=== PATIENT | male | born 1940 | race Caucasian/White ===

== ENCOUNTER → 2017-08-30 | Outpatient (CLI) | payer OTHER ==
[~2017-08-30] MED LIST: ALLO300T2 PO; AMLO10TA2 PO; ASPI-1012 PO; ASPI-1181 PO; ASPI-1197 PO; CLON0.1T PO; CLON0.2T PO; DICL75TA5 PO; ENAL20TA PO; GABA300S PO; LMFO1TAB PO; LOVA40TA2 PO; MISO200T4 PO; OXCA300T PO; OXCA600T10 PO; PANT20TA12 PO; PHEN300C6 PO; SULF500T8 PO; [UNRECOGNIZED DRUG - OTHER] PO
== END | disposition home or self-care (01) ==
LOC: RAH 08:28
PROVIDERS: ATTEND Family Medicine
DX: K80.20 Calculus of gallbladder without cholecystitis without obstruction (principal); K76.0 Fatty (change of) liver, not elsewhere classified
CPT/HCPCS: 76700

== ENCOUNTER → 2017-10-05 | Outpatient (CLI) | payer OTHER | END | disposition home or self-care (01) | LOC: SLP 20:34 | PROVIDERS: ATTEND Family Medicine | DX: G47.33 Obstructive sleep apnea (adult) (pediatric) (principal); J44.9 Chronic obstructive pulmonary disease, unspecified | CPT/HCPCS: 95810 ==

== ENCOUNTER → 2017-11-01 | Outpatient (CLI) | payer OTHER | END | disposition home or self-care (01) | LOC: SLP 20:18 | PROVIDERS: ATTEND Family Medicine | DX: G47.33 Obstructive sleep apnea (adult) (pediatric) (principal); I10 Essential (primary) hypertension; J44.9 Chronic obstructive pulmonary disease, unspecified; R56.9 Unspecified convulsions | CPT/HCPCS: 95811 ==

== ENCOUNTER 2017-11-29 08:11 | Inpatient (IN) | payer OTHER ==
[~2017-11-29] VITALS: Ht 180.3 cm; Wt 86.8 kg
[2017-11-29] VITALS (23 sets, daily range): BP systolic 145–187; BP diastolic 54–119
[~2017-11-29 08:11] MED LIST changes: -AMLO10TA2 PO; -ASPI-1012 PO; -ASPI-1181 PO; -CLON0.2T PO; -GABA300S PO; -LMFO1TAB PO; -OXCA600T10 PO; -PANT20TA12 PO; -PHEN300C6 PO
[2017-11-29] MEDS ORDERED: ALTEPLASE 100 MG VIAL ONE (08:40)
[2017-11-29 08:51] LABS: BASOPHILS % (AUTO) 0.8 % (0.0-5.0); HEMATOCRIT 39.9 % (42-54); LYMPHOCYTES % (AUTO) 30.4 % (21.0-51.0); MEAN CORPUSCULAR HEMOGLOBIN 32.8 pg (27.0-33.0); MEAN CORPUSCULAR HGB CONC 34.5 g/dL (32.0-36.0); MONOCYTES % (AUTO) 10.1 % (3.0-13.0); NEUTROPHILS % (AUTO) 55.7 % (40.0-77.0); PLATELET COUNT (AUTO) 197 K/uL (130-400); RED CELL DISTRIBUTION WIDTH 13.6 % (11.0-15.5); WHITE BLOOD COUNT (AUTO) 3.7 K/uL (4.8-10.8)
[2017-11-29] MEDS ORDERED: SODIUM CHLORIDE 0.9% 100 ML IV ONE (08:52)
[2017-11-29 09:09] LABS: INR 1.08 (0.85-1.15); PARTIAL THROMBOPLASTIN TIME 26.1 SEC (26.3-35.5); PROTHROMBIN TIME 11.3 SEC (9.6-11.6)
[2017-11-29 09:13] LABS: CREATININE 0.8 mg/dL (0.5-1.5); POTASSIUM 4.8 mmol/L (3.5-5.1)
[2017-11-29 09:32] LABS: ALBUMIN 3.4 g/dL (3.5-5.0); BILIRUBIN,TOTAL 0.3 mg/dL (0.2-1.0); CREATINE KINASE MB 1.2 ng/mL (0.5-3.6); TOTAL PROTEIN, SERUM 6.1 g/dL (6.0-8.3)
[2017-11-29] MEDS ORDERED: IOPAMIDOL-370 75 ML VIAL IV ONE (09:34)
[2017-11-29 10:37] LABS: APPEARANCE,URINE Clear (CLEAR); BILIRUBIN,URINE Negative (NEGATIVE); COLOR,URINE Yellow (YELLOW); GLUCOSE, URINE (UA) Negative (NEGATIVE); KETONES,URINE Negative (NEGATIVE); LEUKOCYTE ESTERASE ,URINE Negative (NEGATIVE); NITRATE,URINE Negative (NEGATIVE); OCCULT BLOOD,URINE Negative (NEGATIVE); PROTEIN,URINE Negative (NEGATIVE)
[2017-11-29 10:44] LABS: AMPHET/METH SCREEN,URINE NEGATIVE (NEGATIVE); BARBITURATE SCREEN, URINE NEGATIVE (NEGATIVE); BENZODIAZEPINES SCREEN,URINE NEGATIVE (NEGATIVE); CANNABINOID SCREEN,URINE POSITIVE (NEGATIVE); COCAINE SCREEN,URINE NEGATIVE (NEGATIVE); OPIATE SCREEN,URINE NEGATIVE (NEGATIVE); PHENCYCLIDINE SCREEN,URINE NEGATIVE (NEGATIVE)
[2017-11-29] MEDS ORDERED: PHENYTOIN SODIUM 100 MG ERCAP PO ONE ×3 (10:50→11:20)
[2017-11-29] MEDS ORDERED: PANT20TA12 PO (12:29)
[2017-11-29] MEDS ORDERED: CLON0.2T PO (12:29)
[2017-11-29] MEDS ORDERED: LMFO1TAB PO (12:29)
[2017-11-29] MEDS ORDERED: AMLO10TA2 PO (12:29)
[2017-11-29] MEDS ORDERED: OXCA600T10 PO (12:29)
[2017-11-29] MEDS ORDERED: GABA300S PO (12:29)
[2017-11-29] MEDS ORDERED: ASPI-1181 PO (12:29)
[2017-11-29] MEDS ORDERED: PHEN300C6 PO (12:29)
[2017-11-29] MEDS ORDERED: HYDRALAZINE HCL 20 MG/ML VIAL ONE (12:39)
[2017-11-29] MEDS ORDERED: ACETAMINOPHEN 325 MG TAB PO PRN (12:45)
[2017-11-29] MEDS ORDERED: HYDRALAZINE HCL 20 MG/ML VIAL IV PRN (12:45)
[2017-11-29] MEDS: SODIUM CHLORIDE 0.9% 1000ML 1,000 ML IV SCH (13:05)
[2017-11-29] MEDS: PHENYTOIN SODIUM 100 MG ERCAP PO SCH ×2 (13:17→21:52)
[2017-11-29] MEDS: OXCARBAZEPINE 300 MG TAB PO SCH (21:52)
[2017-11-29] MEDS: ENALAPRIL MALEATE 10 MG TABLET PO SCH (21:52)
[2017-11-29] MEDS: GABAPENTIN 300 MG CAPSULE PO SCH (21:53)
[2017-11-29] MEDS: ATORVASTATIN CALCIUM 20 MG TABLET PO SCH (21:53)
[2017-11-29] MEDS: CLONIDINE HCL 0.2 MG TABLET PO SCH (22:02)
[2017-11-30] VITALS (23 sets, daily range): BP systolic 123–192; BP diastolic 50–87
[2017-11-30] MEDS: SODIUM CHLORIDE 0.9% 1000ML 1,000 ML IV SCH (02:23)
[2017-11-30] MEDS: ACETAMINOPHEN 325 MG TAB PO PRN (02:24)
[2017-11-30] MEDS: PHENYTOIN SODIUM 100 MG ERCAP PO SCH ×3 (06:36→21:07)
[2017-11-30] MEDS: SULFASALAZINE 500 MG TAB.DR PO SCH (07:44)
[2017-11-30] MEDS: PANTOPRAZOLE SODIUM 40 MG TABLET.DR PO SCH (07:44)
[2017-11-30] MEDS: AMLODIPINE BESYLATE 5 MG TAB PO SCH (07:44)
[2017-11-30] MEDS: ALLOPURINOL 300 MG TABLET PO SCH (07:44)
[2017-11-30] MEDS: CLONIDINE HCL 0.2 MG TABLET PO SCH ×2 (07:45→20:50)
[2017-11-30] MEDS ORDERED: PANTOPRAZOLE SODIUM 40 MG TABLET.DR PO SCH (09:00)
[2017-11-30 09:10] LABS: HEMATOCRIT 38.8 % (42-54); MEAN CORPUSCULAR HEMOGLOBIN 32.8 pg (27.0-33.0); MEAN CORPUSCULAR HGB CONC 34.3 g/dL (32.0-36.0); MEAN CORPUSCULAR VOLUME 95.8 fL (79-99); PLATELET COUNT (AUTO) 180 K/uL (130-400); RED BLOOD CELL COUNT(AUTO) 4.05 MIL/uL (4.50-6.20); WHITE BLOOD COUNT (AUTO) 3.7 K/uL (4.8-10.8)
[2017-11-30] MEDS: OXCARBAZEPINE 300 MG TAB PO SCH ×2 (09:14→20:51)
[2017-11-30] MEDS: ENALAPRIL MALEATE 10 MG TABLET PO SCH ×2 (09:15→20:51)
[2017-11-30 09:21] LABS: CREATININE 0.8 mg/dL (0.5-1.5); MAGNESIUM 1.9 mg/dL (1.80-2.40); PHENYTOIN (DILANTIN) 6.6 mcg/mL (10.0-20.0); POTASSIUM 4.1 mmol/L (3.5-5.1)
[2017-11-30] MEDS: ASPIRIN 325MG EC TAB 325 MG TABLET.DR PO SCH (11:07)
[2017-11-30] MEDS ORDERED: PHEN300C6 PO (18:21)
[2017-11-30] MEDS: ATORVASTATIN CALCIUM 20 MG TABLET PO SCH (20:50)
[2017-11-30] MEDS: GABAPENTIN 300 MG CAPSULE PO SCH (20:51)
[2017-12-01] VITALS (9 sets, daily range): BP systolic 119–167; BP diastolic 49–79
[2017-12-01 03:49] LABS: CREATININE 0.7 mg/dL (0.5-1.5); HEMATOCRIT 36.8 % (42-54); MEAN CORPUSCULAR HEMOGLOBIN 34.1 pg (27.0-33.0); MEAN CORPUSCULAR HGB CONC 35.8 g/dL (32.0-36.0); MEAN CORPUSCULAR VOLUME 95.2 fL (79-99); PLATELET COUNT (AUTO) 190 K/uL (130-400); POTASSIUM 3.8 mmol/L (3.5-5.1); RED BLOOD CELL COUNT(AUTO) 3.86 MIL/uL (4.50-6.20); RED CELL DISTRIBUTION WIDTH 13.9 % (11.0-15.5); WHITE BLOOD COUNT (AUTO) 5.3 K/uL (4.8-10.8)
[2017-12-01] MEDS ORDERED: PHENYTOIN SODIUM 100 MG ERCAP PO SCH ×2 (07:30→21:00)
[2017-12-01] MEDS: ACETAMINOPHEN 325 MG TAB PO PRN (07:54)
[2017-12-01] MEDS: SULFASALAZINE 500 MG TAB.DR PO SCH (07:55)
[2017-12-01] MEDS: ALLOPURINOL 300 MG TABLET PO SCH (07:55)
[2017-12-01] MEDS: CLONIDINE HCL 0.2 MG TABLET PO SCH (07:55)
[2017-12-01] MEDS: ASPIRIN 325MG EC TAB 325 MG TABLET.DR PO SCH (07:55)
[2017-12-01] MEDS: PANTOPRAZOLE SODIUM 40 MG TABLET.DR PO SCH (07:56)
[2017-12-01] MEDS: AMLODIPINE BESYLATE 5 MG TAB PO SCH (07:56)
[2017-12-01] MEDS: OXCARBAZEPINE 300 MG TAB PO SCH (08:26)
[2017-12-01] MEDS: ENALAPRIL MALEATE 10 MG TABLET PO SCH (08:26)
[2017-12-01] MEDS ORDERED: THIAMINE HCL 100 MG TABLET PO SCH (09:00)
[2017-12-01] MEDS ORDERED: MULTIVITAMIN TABLET PO SCH (09:00)
[2017-12-01] MEDS ORDERED: FOLIC ACID 1 MG TABLET PO SCH (09:00)
[2017-12-01] MEDS ORDERED: ASPI-1012 PO (13:41)
== END 2017-12-01 14:49 | disposition home or self-care (01) | DRG 62 ==
LOC: EDH 08:11 → EDHIP 11:10 → 2CH 11:46 → 2BH 18:51
PROVIDERS: ADMIT Internal Medicine Critical Care Medicine; ATTEND Internal Medicine Critical Care Medicine
DX: I63.411 Cerebral infarction due to embolism of right middle cerebral artery (principal); E87.1 Hypo-osmolality and hyponatremia; E78.5 Hyperlipidemia, unspecified; F12.90 Cannabis use, unspecified, uncomplicated; I10 Essential (primary) hypertension; G40.909 Epilepsy, unspecified, not intractable, without status epilepticus; G89.29 Other chronic pain; I48.91 Unspecified atrial fibrillation; R29.810 Facial weakness; F17.210 Nicotine dependence, cigarettes, uncomplicated; I25.10 Atherosclerotic heart disease of native coronary artery without angina pectoris; K21.9 Gastro-esophageal reflux disease without esophagitis; M50.30 Other cervical disc degeneration, unspecified cervical region; Z85.46 Personal history of malignant neoplasm of prostate; Z90.49 Acquired absence of other specified parts of digestive tract
CPT/HCPCS: 36415; 70450; 70496; 70498; 70551; 71045; 80048; 80053; 80156; 80185; 80305; 81003; 82542; 82550; 82553; 82948; 83735; 83874; 84484; 85025; 85027; 85610; 85730; 92522; 93005; 93306; 97039; 99291; J0360; J2997; J7030; Q9967

== ENCOUNTER 2020-10-03 10:20 | Inpatient (IN) | payer OTHER ==
[~2020-10-03] VITALS: Ht 177.8 cm; Wt 99.5 kg
[~2020-10-03 10:20] MED LIST changes: +AMLO-258 PO; +ASPI-1012 PO; -ASPI-1197 PO; -CLON0.1T PO; +CLON0.2T PO; -DICL75TA5 PO; -ENAL20TA PO; +ENAL20TA18 PO; +GABA300S PO; -MISO200T4 PO; -OXCA300T PO; +PHEN300C6 PO; -[UNRECOGNIZED DRUG - OTHER] PO
[2020-10-03] MEDS ORDERED: ONDANSETRON 4MG INJ ONE (11:13)
[2020-10-03] MEDS ORDERED: MORPHINE 2 MG SYG ONE ×2 (11:14→15:39)
[2020-10-03 11:27] LABS: BASOPHILS % (AUTO) 0.6 % (0.0-5.0); HEMATOCRIT 41.3 % (42-54); LYMPHOCYTES % (AUTO) 20.7 % (21.0-51.0); MEAN CORPUSCULAR HEMOGLOBIN 29.8 pg (27.0-33.0); MEAN CORPUSCULAR HGB CONC 32.9 g/dL (32.0-36.0); MEAN CORPUSCULAR VOLUME 90.4 fL (79-99); MONOCYTES % (AUTO) 7.2 % (3.0-13.0); NEUTROPHILS % (AUTO) 69.1 % (40.0-77.0); PLATELET COUNT (AUTO) 173 K/uL (130-400); RED BLOOD CELL COUNT(AUTO) 4.57 MIL/uL (4.50-6.20); RED CELL DISTRIBUTION WIDTH 13.6 % (11.0-15.5); WHITE BLOOD COUNT (AUTO) 5.4 K/uL (4.8-10.8)
[2020-10-03 11:38] LABS: POTASSIUM 4.6 mmol/L (3.5-5.1)
[2020-10-03 11:43] LABS: ALBUMIN 3.6 g/dL (3.5-5.0); BILIRUBIN,TOTAL 0.4 mg/dL (0.2-1.0); TOTAL PROTEIN, SERUM 6.4 g/dL (6.0-8.3)
[2020-10-03 11:57] LABS: INR 1.1 (0.85-1.15); PROTHROMBIN TIME 11.9 SEC (9.6-11.6)
[2020-10-03 11:58] LABS: PARTIAL THROMBOPLASTIN TIME 27.6 SEC (26.3-35.5)
[2020-10-03] MEDS ORDERED: POTASSIUM CHLORIDE 20MEQ/100ML 100 ML IV PRN (13:30)
[2020-10-03] MEDS ORDERED: ONDANSETRON 4MG INJ IVP PRN (13:30)
[2020-10-03] MEDS ORDERED: POTASSIUM CHLORIDE 10MEQ/100ML 100 ML IV PRN (13:30)
[2020-10-03] MEDS ORDERED: POTASSIUM CHLORIDE 10% ELIXIR 20 MEQ/15 ML UDCUP PO PRN (13:30)
[2020-10-03] MEDS ORDERED: LIDOCAINE HCL-MPF 1% 2ML VIAL IV PRN ×2 (13:30)
[2020-10-03] MEDS ORDERED: ACETAMINOPHEN 325 MG TAB PO PRN (13:30)
[2020-10-03] MEDS: 0.9%NACL 1000ML 1,000 ML IV SCH (13:30)
[2020-10-03] MEDS ORDERED: KCL 20 MEQ ERTAB PO PRN (13:30)
[2020-10-03] MEDS ORDERED: 0.9%NACL 1000ML 1,000 ML IV ONE (15:39)
[2020-10-03 16:03] LABS: APPEARANCE,URINE Clear (CLEAR); BILIRUBIN,URINE Negative (NEGATIVE); COLOR,URINE Yellow (YELLOW); GLUCOSE, URINE (UA) Negative (NEGATIVE); KETONES,URINE Negative (NEGATIVE); LEUKOCYTE ESTERASE ,URINE Negative (NEGATIVE); NITRATE,URINE Negative (NEGATIVE); OCCULT BLOOD,URINE Negative (NEGATIVE); PROTEIN,URINE Negative (NEGATIVE); UROBILINOGEN,URINE 0.2 mg/dL (0.2-1.0)
[2020-10-03] MEDS ORDERED: HYDROMORPHONE 0.5 MG SYG (0.5MG/0.5ML) ONE (18:14)
[2020-10-03] MEDS ORDERED: PHENYTOIN SODIUM 100 MG ERCAP PO ONE (20:39)
[2020-10-03] MEDS ORDERED: MELO-108 PO (21:43)
[2020-10-03] MEDS ORDERED: ENAL20TA18 PO (21:43)
[2020-10-03] MEDS ORDERED: GABA300C PO (21:43)
[2020-10-03] MEDS ORDERED: PANT40TA55 PO (21:43)
[2020-10-03] MEDS ORDERED: PHEN100C9 PO (21:43)
[2020-10-03] MEDS ORDERED: AEC81 PO (21:43)
[2020-10-03] MEDS ORDERED: GABA100C PO (21:43)
[2020-10-03] MEDS ORDERED: FINA5TAB41 PO (21:43)
[2020-10-03] MEDS ORDERED: OXYB-66 PO (21:43)
[2020-10-03] MEDS ORDERED: CLIN-141 PO (21:43)
[2020-10-03] MEDS ORDERED: OXYBUTYNIN CHLORIDE 5 MG TABLET ONE (22:26)
[2020-10-03] MEDS ORDERED: PHENYTOIN 100 MG/4 ML UDCUP ONE (22:26)
[2020-10-03] MEDS ORDERED: GABAPENTIN 100 MG CAPSULE ONE (22:26)
[2020-10-03] MEDS ORDERED: AMLODIPINE 5 MG TAB ONE (22:27)
[2020-10-03] MEDS ORDERED: ENALAPRIL MALEATE 5 MG TAB ONE (22:29)
[2020-10-03] MEDS: HYDROMORPHONE 0.5 MG SYG (0.5MG/0.5ML) IVP PRN (22:47)
[2020-10-04] VITALS (26 sets, daily range): BP systolic 110–199; BP diastolic 45–92
[2020-10-04] MEDS: KETOROLAC 30MG VIAL (30MG/ML) IV PRN ×2 (00:59→18:46)
[2020-10-04 04:02] LABS: MEAN CORPUSCULAR HEMOGLOBIN 30.1 pg (27.0-33.0); MEAN CORPUSCULAR VOLUME 91.4 fL (79-99); RED BLOOD CELL COUNT(AUTO) 4.05 MIL/uL (4.50-6.20); RED CELL DISTRIBUTION WIDTH 13.5 % (11.0-15.5); WHITE BLOOD COUNT (AUTO) 6.2 K/uL (4.8-10.8)
[2020-10-04 04:10] LABS: MAGNESIUM 1.8 mg/dL (1.80-2.40); POTASSIUM 3.8 mmol/L (3.5-5.1)
[2020-10-04] MEDS ORDERED: MAGNESIUM 2GM PREMIX 50ML 50 ML IV PRN (04:15)
[2020-10-04] MEDS ORDERED: MAGNESIUM 2GM PREMIX 50ML 50 ML IV ONE (04:24)
[2020-10-04] MEDS: MORPHINE 2 MG SYG IVP PRN ×2 (04:27→15:15)
[2020-10-04] MEDS: CLONIDINE HCL 0.1 MG TABLET PO PRN ×2 (04:28→15:15)
[2020-10-04] MEDS: OXYBUTYNIN 5 MG TAB.SR.24H PO SCH ×2 (07:58→21:20)
[2020-10-04] MEDS: GABAPENTIN 300 MG CAPSULE PO SCH (07:59)
[2020-10-04] MEDS: PHENYTOIN SODIUM 100 MG ERCAP PO SCH ×4 (08:00→21:21)
[2020-10-04] MEDS ORDERED: PANTOPRAZOLE 40 MG TAB DR PO SCH (09:00)
[2020-10-04] MEDS: 0.9%NACL 1000ML 1,000 ML IV SCH ×2 (10:04→11:50)
[2020-10-04] MEDS: GABAPENTIN 100 MG CAPSULE PO SCH ×3 (10:04→21:31)
[2020-10-04] MEDS ORDERED: ROPIVACAINE 0.5% 5MG/ML 30ML IJ ONE ×2 (10:13→10:16)
[2020-10-04] MEDS ORDERED: GLYCOPYRROLATE 1 MG/5 ML SYRINGE ONE (10:13)
[2020-10-04] MEDS ORDERED: NEOSTIGMINE 5MG/5ML SYR IV ONE (10:14)
[2020-10-04] MEDS ORDERED: ROCURONIUM 10MG/1ML SYR 10 MG/ML ML ONE (10:14)
[2020-10-04] MEDS ORDERED: MIDAZOLAM HCL 1 MG/ML 2ML VIAL ONE (10:14)
[2020-10-04] MEDS ORDERED: PROPOFOL 10 MG/ML 20ML VIAL IV ONE (10:14)
[2020-10-04] MEDS ORDERED: 0.9%NACL 10ML VIAL ONE (10:16)
[2020-10-04] MEDS: CEFAZOLIN SODIUM 1 GM VIAL ONE ×2 (10:35→10:38)
[2020-10-04] MEDS ORDERED: MEPERIDINE-PF 25 MG/ML SYG ONE ×2 (12:39→12:56)
[2020-10-04] MEDS: AMLODIPINE 5 MG TAB PO SCH (14:02)
[2020-10-04] MEDS: MELOXICAM 7.5 MG TABLET PO SCH (14:02)
[2020-10-04] MEDS: ASPIRIN 81 MG EC TAB PO SCH (14:02)
[2020-10-04] MEDS: FINASTERIDE 5 MG TABLET PO SCH (14:03)
[2020-10-04] MEDS: PANTOPRAZOLE 40 MG TAB DR PO SCH (14:03)
[2020-10-04] MEDS: HYDROMORPHONE 0.5 MG SYG (0.5MG/0.5ML) IVP PRN (14:08)
[2020-10-04] MEDS: ENALAPRIL MALEATE 10 MG TABLET PO SCH (21:21)
[2020-10-04] MEDS: ATORVASTATIN 10 MG TABLET PO SCH (21:21)
[2020-10-05] MEDS: HYDROMORPHONE 0.5 MG SYG (0.5MG/0.5ML) IVP PRN (00:41)
[2020-10-05 03:27] VITALS: BP 148/61
[2020-10-05 04:31] LABS: HEMATOCRIT 31.1 % (42-54); MEAN CORPUSCULAR HEMOGLOBIN 30.8 pg (27.0-33.0); MEAN CORPUSCULAR HGB CONC 34.1 g/dL (32.0-36.0); MEAN CORPUSCULAR VOLUME 90.4 fL (79-99); RED BLOOD CELL COUNT(AUTO) 3.44 MIL/uL (4.50-6.20); RED CELL DISTRIBUTION WIDTH 13.4 % (11.0-15.5); WHITE BLOOD COUNT (AUTO) 7.2 K/uL (4.8-10.8)
[2020-10-05] MEDS: MORPHINE 2 MG SYG IVP PRN (04:32)
[2020-10-05 04:41] LABS: CREATININE 0.8 mg/dL (0.5-1.5); POTASSIUM 3.8 mmol/L (3.5-5.1)
[2020-10-05] MEDS: GABAPENTIN 300 MG CAPSULE PO SCH ×3 (06:00→08:12)
[2020-10-05] MEDS: PHENYTOIN SODIUM 100 MG ERCAP PO SCH ×3 (08:12→21:13)
[2020-10-05 08:49] VITALS: BP 136/95
[2020-10-05] MEDS: KETOROLAC 30MG VIAL (30MG/ML) IV PRN (08:56)
[2020-10-05] MEDS: FINASTERIDE 5 MG TABLET PO SCH (09:00)
[2020-10-05] MEDS: ASPIRIN 81 MG EC TAB PO SCH ×2 (09:00→21:13)
[2020-10-05] MEDS ORDERED: ALLOPURINOL 300 MG TABLET PO SCH (09:00)
[2020-10-05] MEDS: PANTOPRAZOLE 40 MG TAB DR PO SCH (09:01)
[2020-10-05] MEDS: ENOXAPARIN SODIUM 40 MG/0.4 ML SYRINGE SQ SCH (09:01)
[2020-10-05] MEDS: OXYBUTYNIN 5 MG TAB.SR.24H PO SCH ×2 (09:02→21:12)
[2020-10-05] MEDS: AMLODIPINE 5 MG TAB PO SCH ×2 (09:02→21:12)
[2020-10-05] MEDS ORDERED: GABAPENTIN 100 MG CAPSULE PO SCH (12:00)
[2020-10-05 13:28] VITALS: BP 129/57
[2020-10-05] MEDS ORDERED: PHENYTOIN 100 MG/4 ML UDCUP PO SCH (14:00)
[2020-10-05] MEDS: GABAPENTIN 100 MG CAPSULE PO SCH ×2 (14:12→21:12)
[2020-10-05] MEDS: MELOXICAM 7.5 MG TABLET PO SCH (14:31)
[2020-10-05] MEDS: ACETAMINOPHEN 325 MG TAB PO PRN (14:53)
[2020-10-05 19:21] VITALS: BP 115/43
[2020-10-05] MEDS: ATORVASTATIN 10 MG TABLET PO SCH (21:13)
[2020-10-05 23:33] VITALS: BP 137/68
[2020-10-06] MEDS: ENALAPRIL MALEATE 10 MG TABLET PO SCH ×3 (00:15→19:41)
[2020-10-06] MEDS: 0.9%NACL 1000ML 1,000 ML IV SCH ×2 (01:30→21:24)
[2020-10-06 03:36] VITALS: BP 140/52
[2020-10-06 04:28] LABS: CREATININE 1.1 mg/dL (0.5-1.5); POTASSIUM 3.6 mmol/L (3.5-5.1)
[2020-10-06 04:32] LABS: HEMATOCRIT 27.5 % (42-54); MEAN CORPUSCULAR HEMOGLOBIN 30.3 pg (27.0-33.0); MEAN CORPUSCULAR HGB CONC 33.1 g/dL (32.0-36.0); MEAN CORPUSCULAR VOLUME 91.7 fL (79-99); RED CELL DISTRIBUTION WIDTH 13.5 % (11.0-15.5); WHITE BLOOD COUNT (AUTO) 7.4 K/uL (4.8-10.8)
[2020-10-06] MEDS: PHENYTOIN SODIUM 100 MG ERCAP PO SCH ×3 (06:12→19:42)
[2020-10-06] MEDS: GABAPENTIN 300 MG CAPSULE PO SCH (06:13)
[2020-10-06] MEDS: KETOROLAC 30MG VIAL (30MG/ML) IV PRN ×2 (06:14→08:52)
[2020-10-06 08:00] VITALS: BP 126/57
[2020-10-06] MEDS: FINASTERIDE 5 MG TABLET PO SCH (08:43)
[2020-10-06] MEDS: PANTOPRAZOLE 40 MG TAB DR PO SCH (08:43)
[2020-10-06] MEDS: MELOXICAM 7.5 MG TABLET PO SCH (08:43)
[2020-10-06] MEDS: OXYBUTYNIN 5 MG TAB.SR.24H PO SCH ×2 (08:43→19:42)
[2020-10-06] MEDS: ALLOPURINOL 300 MG TABLET PO SCH (08:44)
[2020-10-06] MEDS: AMLODIPINE 5 MG TAB PO SCH ×2 (08:44→19:41)
[2020-10-06] MEDS: ENOXAPARIN SODIUM 40 MG/0.4 ML SYRINGE SQ SCH (08:45)
[2020-10-06 12:00] VITALS: BP 128/60
[2020-10-06] MEDS: GABAPENTIN 100 MG CAPSULE PO SCH ×2 (12:49→19:42)
[2020-10-06 17:03] VITALS: BP 157/70
[2020-10-06] MEDS: ATORVASTATIN 10 MG TABLET PO SCH (19:42)
[2020-10-06] MEDS: ASPIRIN 81 MG EC TAB PO SCH (19:42)
[2020-10-06 20:20] VITALS: BP 155/58
[2020-10-06] MEDS: ACETAMINOPHEN 325 MG TAB PO PRN (21:30)
[2020-10-07] VITALS (7 sets, daily range): BP systolic 122–158; BP diastolic 49–69
[2020-10-07 04:36] LABS: HEMATOCRIT 25.3 % (42-54); MEAN CORPUSCULAR HEMOGLOBIN 30.3 pg (27.0-33.0); MEAN CORPUSCULAR VOLUME 89.1 fL (79-99); RED BLOOD CELL COUNT(AUTO) 2.84 MIL/uL (4.50-6.20); RED CELL DISTRIBUTION WIDTH 13.3 % (11.0-15.5); WHITE BLOOD COUNT (AUTO) 5.9 K/uL (4.8-10.8)
[2020-10-07 04:44] LABS: POTASSIUM 3.7 mmol/L (3.5-5.1)
[2020-10-07] MEDS: PHENYTOIN SODIUM 100 MG ERCAP PO SCH ×3 (05:36→19:48)
[2020-10-07] MEDS: GABAPENTIN 300 MG CAPSULE PO SCH (05:36)
[2020-10-07] MEDS: MELOXICAM 7.5 MG TABLET PO SCH (08:30)
[2020-10-07] MEDS: OXYBUTYNIN 5 MG TAB.SR.24H PO SCH ×2 (08:30→19:48)
[2020-10-07] MEDS: FINASTERIDE 5 MG TABLET PO SCH (08:31)
[2020-10-07] MEDS: PANTOPRAZOLE 40 MG TAB DR PO SCH (08:31)
[2020-10-07] MEDS: ENALAPRIL MALEATE 10 MG TABLET PO SCH ×2 (08:31→19:48)
[2020-10-07] MEDS: AMLODIPINE 5 MG TAB PO SCH ×2 (08:32→19:47)
[2020-10-07] MEDS: ENOXAPARIN SODIUM 40 MG/0.4 ML SYRINGE SQ SCH (08:33)
[2020-10-07] MEDS: GABAPENTIN 100 MG CAPSULE PO SCH ×2 (14:39→19:47)
[2020-10-07] MEDS: KETOROLAC 30MG VIAL (30MG/ML) IV PRN (15:13)
[2020-10-07] MEDS ORDERED: LACTULOSE 20 GM/30 ML UDCUP PO PRN (17:00)
[2020-10-07] MEDS: 0.9%NACL 1000ML 1,000 ML IV SCH (17:30)
[2020-10-07] MEDS ORDERED: SENNOSIDES 8.6 MG TABLET ONE (19:00)
[2020-10-07] MEDS ORDERED: DOCUSATE SODIUM 100 MG CAP PO ONE (19:00)
[2020-10-07] MEDS: ASPIRIN 81 MG EC TAB PO SCH (19:47)
[2020-10-07] MEDS: DOCUSATE SODIUM 100 MG CAP PO SCH (19:47)
[2020-10-07] MEDS: ATORVASTATIN 10 MG TABLET PO SCH (19:47)
[2020-10-07] MEDS: SENNOSIDES 8.6 MG TABLET PO SCH (19:48)
[2020-10-08 04:06] VITALS: BP 162/66
[2020-10-08 04:29] LABS: BASOPHILS % (AUTO) 0.3 % (0.0-5.0); EOSINOPHILS % (AUTO) 2.4 % (0.0-8.0); HEMATOCRIT 27.2 % (42-54); LYMPHOCYTES % (AUTO) 14.4 % (21.0-51.0); MEAN CORPUSCULAR HEMOGLOBIN 29.4 pg (27.0-33.0); MEAN CORPUSCULAR HGB CONC 32.7 g/dL (32.0-36.0); MEAN CORPUSCULAR VOLUME 89.8 fL (79-99); MONOCYTES % (AUTO) 9.9 % (3.0-13.0); NEUTROPHILS % (AUTO) 72.7 % (40.0-77.0); PLATELET COUNT (AUTO) 168 K/uL (130-400); RED BLOOD CELL COUNT(AUTO) 3.03 MIL/uL (4.50-6.20); RED CELL DISTRIBUTION WIDTH 13.3 % (11.0-15.5); WHITE BLOOD COUNT (AUTO) 5.8 K/uL (4.8-10.8)
[2020-10-08 04:57] LABS: CREATININE 0.9 mg/dL (0.5-1.5); POTASSIUM 4.3 mmol/L (3.5-5.1)
[2020-10-08 05:19] LABS: PHENYTOIN (DILANTIN) 15.2 mcg/mL (10.0-20.0)
[2020-10-08] MEDS: GABAPENTIN 300 MG CAPSULE PO SCH (05:43)
[2020-10-08] MEDS: PHENYTOIN SODIUM 100 MG ERCAP PO SCH ×3 (05:43→20:54)
[2020-10-08] MEDS: CLONIDINE HCL 0.1 MG TABLET PO PRN (05:44)
[2020-10-08 08:12] VITALS: BP 170/66
[2020-10-08] MEDS: PANTOPRAZOLE 40 MG TAB DR PO SCH (08:23)
[2020-10-08] MEDS: MELOXICAM 7.5 MG TABLET PO SCH (08:23)
[2020-10-08] MEDS: DOCUSATE SODIUM 100 MG CAP PO SCH ×2 (08:24→20:52)
[2020-10-08] MEDS: FINASTERIDE 5 MG TABLET PO SCH (08:24)
[2020-10-08] MEDS: ALLOPURINOL 300 MG TABLET PO SCH (08:24)
[2020-10-08] MEDS: AMLODIPINE 5 MG TAB PO SCH ×2 (08:24→20:54)
[2020-10-08] MEDS: OXYBUTYNIN 5 MG TAB.SR.24H PO SCH ×2 (08:24→20:54)
[2020-10-08] MEDS: ENALAPRIL MALEATE 10 MG TABLET PO SCH (08:24)
[2020-10-08] MEDS: SENNOSIDES 8.6 MG TABLET PO SCH ×2 (08:24→20:52)
[2020-10-08] MEDS: KETOROLAC 30MG VIAL (30MG/ML) IV PRN (08:38)
[2020-10-08 11:45] VITALS: BP 141/57
[2020-10-08] MEDS: GABAPENTIN 100 MG CAPSULE PO SCH ×2 (12:42→20:54)
[2020-10-08 16:27] VITALS: BP 169/74
[2020-10-08 20:00] VITALS: BP 172/65
[2020-10-08] MEDS: ATORVASTATIN 10 MG TABLET PO SCH (20:54)
[2020-10-08] MEDS: ASPIRIN 81 MG EC TAB PO SCH (20:55)
[2020-10-09] VITALS (7 sets, daily range): BP systolic 142–179; BP diastolic 58–75
[2020-10-09] MEDS ORDERED: MORPHINE 2 MG SYG ONE
[2020-10-09] MEDS: CLONIDINE HCL 0.1 MG TABLET PO PRN (00:02)
[2020-10-09] MEDS: PHENYTOIN SODIUM 100 MG ERCAP PO SCH ×3 (06:16→20:59)
[2020-10-09] MEDS: GABAPENTIN 300 MG CAPSULE PO SCH (06:18)
[2020-10-09 09:26] LABS: HEMATOCRIT 31.8 % (42-54)
[2020-10-09] MEDS: SENNOSIDES 8.6 MG TABLET PO SCH ×2 (09:50→21:01)
[2020-10-09] MEDS: DOCUSATE SODIUM 100 MG CAP PO SCH ×2 (09:51→20:58)
[2020-10-09] MEDS: OXYBUTYNIN 5 MG TAB.SR.24H PO SCH ×2 (09:51→20:59)
[2020-10-09] MEDS: FINASTERIDE 5 MG TABLET PO SCH (09:51)
[2020-10-09] MEDS: AMLODIPINE 5 MG TAB PO SCH ×2 (09:51→21:00)
[2020-10-09] MEDS: APIXABAN 2.5 MG TABLET PO SCH ×2 (09:51→20:58)
[2020-10-09] MEDS: PANTOPRAZOLE 40 MG TAB DR PO SCH (09:51)
[2020-10-09] MEDS: ENALAPRIL MALEATE 10 MG TABLET PO SCH (09:52)
[2020-10-09] MEDS: MORPHINE 2 MG SYG IVP PRN ×2 (09:53→22:10)
[2020-10-09] MEDS: GABAPENTIN 100 MG CAPSULE PO SCH ×2 (11:47→21:00)
[2020-10-09] MEDS: ATORVASTATIN 10 MG TABLET PO SCH (21:00)
[2020-10-10 04:38] VITALS: BP 174/67
[2020-10-10] MEDS: PHENYTOIN SODIUM 100 MG ERCAP PO SCH ×3 (07:09→20:56)
[2020-10-10 08:00] VITALS: BP 171/72
[2020-10-10] MEDS: FINASTERIDE 5 MG TABLET PO SCH (08:38)
[2020-10-10] MEDS: DOCUSATE SODIUM 100 MG CAP PO SCH ×2 (08:38→20:58)
[2020-10-10] MEDS: ENALAPRIL MALEATE 10 MG TABLET PO SCH (08:40)
[2020-10-10] MEDS: PANTOPRAZOLE 40 MG TAB DR PO SCH (08:41)
[2020-10-10] MEDS: APIXABAN 2.5 MG TABLET PO SCH ×2 (08:41→20:57)
[2020-10-10] MEDS: AMLODIPINE 5 MG TAB PO SCH ×2 (08:41→20:56)
[2020-10-10] MEDS: OXYBUTYNIN 5 MG TAB.SR.24H PO SCH ×2 (08:41→20:56)
[2020-10-10] MEDS: SENNOSIDES 8.6 MG TABLET PO SCH ×2 (08:42→20:58)
[2020-10-10] MEDS: GABAPENTIN 300 MG CAPSULE PO SCH (08:42)
[2020-10-10] MEDS: ALLOPURINOL 300 MG TABLET PO SCH (08:42)
[2020-10-10] MEDS: ACETAMINOPHEN 325 MG TAB PO PRN (08:44)
[2020-10-10] MEDS ORDERED: APIXABAN 2.5 MG TABLET PO SCH (09:00)
[2020-10-10 09:56] LABS: HEMATOCRIT 29.7 % (42-54)
[2020-10-10 11:52] VITALS: BP 122/50
[2020-10-10] MEDS: GABAPENTIN 100 MG CAPSULE PO SCH ×2 (13:24→20:57)
[2020-10-10 16:00] VITALS: BP 187/69
[2020-10-10] MEDS: ACETAMINOPHEN WITH CODEINE 1 TAB TAB PO PRN (16:01)
[2020-10-10 20:23] VITALS: BP 160/80
[2020-10-10] MEDS: ATORVASTATIN 10 MG TABLET PO SCH (20:57)
[2020-10-10] MEDS: MORPHINE 2 MG SYG IVP PRN (22:17)
[2020-10-11] MEDS: CLONIDINE HCL 0.1 MG TABLET PO PRN (00:03)
[2020-10-11 00:15] VITALS: BP 175/80
[2020-10-11] MEDS: ACETAMINOPHEN WITH CODEINE 1 TAB TAB PO PRN (01:27)
[2020-10-11 04:00] VITALS: BP 143/62
[2020-10-11 05:31] LABS: HEMATOCRIT 27.6 % (42-54); MEAN CORPUSCULAR HEMOGLOBIN 29.3 pg (27.0-33.0); MEAN CORPUSCULAR HGB CONC 32.6 g/dL (32.0-36.0); MEAN CORPUSCULAR VOLUME 89.9 fL (79-99); RED BLOOD CELL COUNT(AUTO) 3.07 MIL/uL (4.50-6.20); RED CELL DISTRIBUTION WIDTH 13.2 % (11.0-15.5); WHITE BLOOD COUNT (AUTO) 4.4 K/uL (4.8-10.8)
[2020-10-11 05:45] LABS: ALBUMIN 2.4 g/dL (3.5-5.0); BILIRUBIN,TOTAL 0.6 mg/dL (0.2-1.0); CREATININE 0.8 mg/dL (0.5-1.5); POTASSIUM 4.2 mmol/L (3.5-5.1); TOTAL PROTEIN, SERUM 5.8 g/dL (6.0-8.3)
[2020-10-11] MEDS: PHENYTOIN SODIUM 100 MG ERCAP PO SCH ×2 (06:00→14:09)
[2020-10-11] MEDS: GABAPENTIN 300 MG CAPSULE PO SCH (06:00)
[2020-10-11] MEDS ORDERED: HYDROCODONE/ACETAMINOPHEN 5/325 MG TAB PO PRN ×2 (07:45→13:45)
[2020-10-11] MEDS ORDERED: HYDROCODONE/ACETAMINOPHEN 5/325 MG TAB ONE (07:51)
[2020-10-11 08:00] VITALS: BP 155/54
[2020-10-11] MEDS: SENNOSIDES 8.6 MG TABLET PO SCH (08:14)
[2020-10-11] MEDS: PANTOPRAZOLE 40 MG TAB DR PO SCH (08:14)
[2020-10-11] MEDS: AMLODIPINE 5 MG TAB PO SCH (08:15)
[2020-10-11] MEDS: APIXABAN 2.5 MG TABLET PO SCH (08:15)
[2020-10-11] MEDS: OXYBUTYNIN 5 MG TAB.SR.24H PO SCH (08:16)
[2020-10-11] MEDS: FINASTERIDE 5 MG TABLET PO SCH (08:16)
[2020-10-11] MEDS: DOCUSATE SODIUM 100 MG CAP PO SCH (08:16)
[2020-10-11] MEDS: ENALAPRIL MALEATE 10 MG TABLET PO SCH (08:17)
[2020-10-11 12:00] VITALS: BP 118/61
[2020-10-11] MEDS: GABAPENTIN 100 MG CAPSULE PO SCH (14:09)
== END 2020-10-11 15:21 | DRG 522 ==
LOC: EDH 10:20 → EDHIP 13:18 → 4AH 20:52
PROVIDERS: ADMIT Internal Medicine; ATTEND Internal Medicine
PROC: 0SRR0J9 Replacement of Right Hip Joint, Femoral Surface with Synthetic Substitute, Cemented, Open Approach (ICD-10-PCS; principal; 2020-10-04 10:16)
PROC: 0QS604Z Reposition Right Upper Femur with Internal Fixation Device, Open Approach (ICD-10-PCS; 2020-10-04 10:16)
PROC: 5A09357 Assistance with Respiratory Ventilation, Less than 24 Consecutive Hours, Continuous Positive Airway Pressure (ICD-10-PCS; 2020-10-04 10:16)
PROC: 5A09357 Assistance with Respiratory Ventilation, Less than 24 Consecutive Hours, Continuous Positive Airway Pressure (ICD-10-PCS; 2020-10-05)
PROC: 5A09357 Assistance with Respiratory Ventilation, Less than 24 Consecutive Hours, Continuous Positive Airway Pressure (ICD-10-PCS; 2020-10-06)
PROC: 5A09357 Assistance with Respiratory Ventilation, Less than 24 Consecutive Hours, Continuous Positive Airway Pressure (ICD-10-PCS; 2020-10-07)
PROC: 5A09357 Assistance with Respiratory Ventilation, Less than 24 Consecutive Hours, Continuous Positive Airway Pressure (ICD-10-PCS; 2020-10-09)
DX: S72.001A Fracture of unspecified part of neck of right femur, initial encounter for closed fracture (principal); D62 Acute posthemorrhagic anemia; K21.9 Gastro-esophageal reflux disease without esophagitis; I10 Essential (primary) hypertension; Z68.30 Body mass index [BMI] 30.0-30.9, adult; G40.909 Epilepsy, unspecified, not intractable, without status epilepticus; E66.9 Obesity, unspecified; Z20.822 Contact with and (suspected) exposure to COVID-19; E78.5 Hyperlipidemia, unspecified; H91.90 Unspecified hearing loss, unspecified ear; I25.10 Atherosclerotic heart disease of native coronary artery without angina pectoris; K59.09 Other constipation; L89.312 Pressure ulcer of right buttock, stage 2; S50.311A Abrasion of right elbow, initial encounter; Z68.31 Body mass index [BMI] 31.0-31.9, adult; Z79.82 Long term (current) use of aspirin; Z85.46 Personal history of malignant neoplasm of prostate; Z86.73 Personal history of transient ischemic attack (TIA), and cerebral infarction without residual deficits; Y93.89 Activity, other specified; Y99.8 Other external cause status; Y92.009 Unspecified place in unspecified non-institutional (private) residence as the place of occurrence of the external cause; W18.30XA Fall on same level, unspecified, initial encounter
CPT/HCPCS: 36415; 71045; 73070; 73502; 80048; 80053; 80185; 81003; 82948; 83735; 85014; 85018; 85025; 85027; 85610; 85730; 87040; 88305; 88311; 93005; 97039; C1776; G0378; J0690; J1170; J1650; J1885; J2175; J2250; J2405; J2704; J2710; J2795; J3475; J3490; J7030; U0003

== ENCOUNTER → 2023-02-24 | Outpatient (CLI) | payer OTHER ==
[~2023-02-24] MED LIST changes: +AEC81 PO; -ASPI-1012 PO; +ENAL-91 PO; -ENAL20TA18 PO; +FINA5TAB41 PO; +GABA100C PO; +GABA300C PO; -GABA300S PO; +OXYB-66 PO; +PANT40TA55 PO; +PHEN100C9 PO; -SULF500T8 PO
== END | disposition home or self-care (01) ==
LOC: RAH 11:23
PROVIDERS: ATTEND Family Medicine
DX: R04.2 Hemoptysis (principal)
CPT/HCPCS: 71046

== ENCOUNTER → 2023-05-06 | Outpatient (CLI) | payer OTHER | END | disposition home or self-care (01) | LOC: RAH 13:45 | PROVIDERS: ATTEND Orthopaedic Surgery | DX: Z96.641 Presence of right artificial hip joint (principal) | CPT/HCPCS: 73700 ==

== ENCOUNTER → 2024-11-28 | Emergency (ER) | payer OTHER ==
[~2024-11-28] VITALS: Ht 182.9 cm; Wt 95.3 kg
--- NOTE | 2024-11-28 16:51 | ERN ---
ED Note History of Present Illness Stated Complaint: HIP AND LEG PAIN Time Seen by MD: 16:49 Time Seen by Midlevel: 16:50 Dictation: Mr. Momin is a 84 year old gentleman with hisotry of hypertension, hyperlipidemia, seizure disorder, gout and GERD who presented to the emergency department this afternoon for evaluation of hip pain. He reports hip fracture in 2020 with repair. He states that he has had multiple complications such are infected hardware removal, IV antibiotics, and increased pain. He states that a few weeks ago he "turned over in bed" and right hip pain worsened. He denies additional fall or trauma. He states he has seen Dr. Parish Mandujano who plans hip replacement. He states that he had imaging done at [facility]. He states that he spoke with Dr. Mandujano and he states that he told him he was coming to [facility] for pain management and that he wanted his surgery done here. He states that he do es not want additional imaging; just pain medications. I called Dr. Mandujano who states he did not advise patient to come to hospital. He states that he sent patient to [facility] for bone scan only and that he would do surgery only at [facility]. He states we should tell the patient to go to his office tomorrow and they will address his pain/pain medications. Allergies: Coded Allergies: No Known Allergies (Unverified Allergy, 12/11/12) Home Meds Reported Medications Aspirin (ASPIRIN 81 MG ECTAB) 81 Mg Ectab, 81 MG PO DAILY, TAB.EC 10/03/20 Finasteride (Finasteride) 5 Mg Tablet, 5 MG PO DAILY, TAB 10/03/20 Pantoprazole Sodium (Protonix) 40 Mg Ectab, 40 MG PO DAILY, TAB.EC 10/03/20 Oxybutynin Chloride (Oxybutynin Chloride ER) 5 Mg Tab.er.24, 5 MG PO BID 10/03/20 Enalapril Maleate (Enalapril Maleate) 20 Mg Tablet, 20 MG PO HS, TAB 10/03/20 Gabapentin (Neurontin) 100 Mg Capsule, 200 MG PO BIDLUNCHDINNER, CAP 10/03/20 Phenytoin Sodium Extended (Phenytoin Sodium Extended) 100 Mg Capsule, 100 MG PO BIDMEALS, CAP 10/03/20 Gabapentin (Neurontin) 300 Mg Capsule, 300 MG PO DAILYBKFST, CAP 10/03/20 Phenytoin Sodium Extended (Phenytoin Sodium Extended) 300 Mg Capsule, 300 MG PO HS, CAP 11/30/17 Amlodipine Besylate (Amlodipine Besylate) 10 Mg Tablet, 10 MG PO DAILY, TAB 11/29/17 Clonidine HCl (Clonidine HCl) 0.2 Mg Tablet, 0.2 MG PO BID, TAB 11/29/17 Lovastatin (Lovastatin) 40 Mg Tablet, 40 MG PO HS, TAB 01/20/16 Allopurinol (Allopurinol) 300 Mg Tablet, 300 MG PO QODAY, TAB 01/20/16 Past Medical History Past Medical History: GERD, High Cholesterol, Hypertension, Seizure PSYCH History: no pertinent psych hx Social History: Negative RN Note Reviewed/Agreed w/PFSH: Yes Review of System Dictation REVIEW OF SYSTEMS: CONSTITUTIONAL: Patient denies fevers, chills, sweats and weight changes. EYES: Patient denies any visual symptoms. EARS, NOSE, AND THROAT: No difficulties with hearing. No symptoms of rhinitis or sore throat. CARDIOVASCULAR: Patient denies chest pains, palpitations, orthopnea and paroxysmal nocturnal dyspnea. RESPIRATORY: No dyspnea on exertion, no wheezing or cough. GI: No nausea, vomiting, diarrhea, constipation, abdominal pain, hematochezia or melena. : No urinary hesitancy or dribbling. No nocturia or urinary frequency. No abnormal urethral discharge. MUSCULOSKELETAL:Reports pain right hip/leg. He states that he is pending right hip replacement by Dr. Parish Mandujano NEUROLOGIC: No chronic headaches, no seizures. Patient denies numbness, tingling or weakness. PSYCHIATRIC: Patient denies problems with mood disturbance. No problems with an xiety. ENDOCRINE: No excessive urination or excessive thirst. DERMATOLOGIC: Patient denies any rashes or skin changes. Initial Vital Sign VS Vital Signs Date Time Temp Pulse Resp B/P (MAP) Pulse Ox O2 Delivery O2 Flow Rate FiO2 11/28/24 17:04 99.0 61 20 174/75 98 0 Physical Exam Dictation Vital signs: Reviewed.Temperature 99.0 Constitutional: No acute distress. Non-toxic appearing. Head/Face: Normocephalic, atraumatic. Eyes: Periorbital areas with no swelling, redness, or edema. Lids and lashes are normal. Conjunctival injection is absent. Sclera anicteric. Pupils equal, round, reactive to light. ENT: Pinnas intact and no signs of trauma or erythema. Ear canals clear and no discharge. TMs no erythema. No nasal discharge or bleeding noted. Oropharynx with no exudate, redness, swelling, masses, exudates, or evidence of obstruction. Uvula midline. Mucous membranes moist. Neck: Trachea midline, no masses palpated, and no cervical lymphadenopathy. No swelling. Supple, full range of motion. Chest/Axilla: No tenderness, no crepitus, no paradoxical movement, no retractions. Cardiovascular: Regular rate, regular rhythm, no murmur, no gallops. Symmetric pulses. No peripheral edema. Hypertensive blood pressure; 174/75 Respiratory: Respirations even and unlabored. Lung sounds clear; no wheezes, rales or rhonchi. Room air spo2 99%. Gastrointestinal: Inspection is normal. No distention is appreciated. Bowel sounds are normal. No mass or organomegaly . There is no tenderness. No rebound. No rigidity. No voluntary or involuntary guarding. No Solano's sign. Neurological: Normal speech, gross motor function intact, gross sensory function intact. No focal weakness/Paresthesia. Musculoskeletal/Extremities: . Symmetric pulses. Pain with ROM right ship. Integumentary: Intact. Skin is normal color, warm and dry. Cap refill less than 2 seconds. ED Course ED Course Vital Signs Date Time Temp Pulse Resp B/P (MAP) Pulse Ox O2 Delivery O2 Flow Rate FiO2 11/28/24 17:04 99.0 61 20 174/75 98 0 Patient declined imaging. I spoke with Dr. Mandujano would advise that patient should be told to go to his office tomorrow for medication refills/pain management. He also mentioned that the surgery would not be done at [facility] and that he would need to go to [facility] in [place]. Patient eloped from out lobby. Medical Decision Making MDM MDM: Differential diagnosis: right hip fracture, uncontrolled pain Rationale: Tests considered and ordered secondary to shared decision making include: N/A; patient refused imaging Previous outside records reviewed: Old ER visits. Risk of complication and/or morbidity or mortality of patient management: None Medications-Per medication reconciliation Need for hospitalization: Patient does not meet criteria for hospitalization. Need for emergency major/minor surgery: No There are no social concerns with this patient. Prescription drug management: NA; patient advised that he should go to Dr. Johansen office tomorrow for pain management/refills. Prescriptions will include symptomatic care Patient's prior external medical records from other ER visits were reviewed by me as indicated. Prior testing and results from previous visits were reviewed. Prior tests were taken into account with medical decision making and resource utilization, independent historian/historians were used to obtain complete me dical history. I independently interpreted the test that were performed, results were reviewed by me and considered findings on radiology if ordered. Medical management and examination interpretation discussions were had by me with other qualified healthcare professionals as indicated for the patient's care. DX & DISP Disposition: Other(Comment) (Eloped) Departure Condition: Stable Additional Instructions: Patient eloped from lobby. He was advised that Dr. Mandujano said to come to hospital tomorrow for pain medication refill. He was also told that Dr. Mandujano states that hip replacement surgery would need to be done at [facility] in [place]. Referrals: REHAN BENITEZ MD (PCP) PARISH MANDUJANO MD Time of Disposition: 17:50 BOB GUAMAN NP Nov 28, 2024 16:51
[2024-11-28 17:04] VITALS: BP 174/75; PULSE 61; RESP 20; TEMP 98.9
== END ==
LOC: EDH 16:29
DX: M25.551 Pain in right hip (principal); E78.00 Pure hypercholesterolemia, unspecified; I10 Essential (primary) hypertension; Z79.82 Long term (current) use of aspirin; Z79.899 Other long term (current) drug therapy
CPT/HCPCS: 99281

== ENCOUNTER → 2024-12-06 | Outpatient (CLI) | payer OTHER ==
--- NOTE | 2024-12-06 12:08 | HMCIMG ---
CHEST 2VWS HISTORY: Cough COMPARISON: 02/24/2023 FINDINGS: Frontal and lateral projections of the chest were obtained. There is no acute pulmonary infiltrates or failure. The heart is borderline enlarged. No evidence of aortic calcification is seen. Degenerative changes are seen of the thoracolumbar spine. IMPRESSION: 1. No acute pulmonary infiltrates.
== END | disposition home or self-care (01) ==
LOC: RAH 10:59
PROVIDERS: ATTEND Family Medicine
DX: R05.9 Cough, unspecified (principal); M47.815 Spondylosis without myelopathy or radiculopathy, thoracolumbar region
CPT/HCPCS: 71046